=== PATIENT | male | born 1950 | race Caucasian/White ===

== ENCOUNTER → 2016-06-13 | Outpatient (CLI) | payer OTHER, MEDICARE ==
--- NOTE | 2016-06-13 11:46 | XR ---
EXAMINATION TYPE: XR shoulder limited LT DATE OF EXAM: 06/13/2016 11:30 AM COMPARISON: NONE HISTORY: Pain TECHNIQUE: Two views are submitted. FINDINGS: The osseous structures are intact. There is no acute fracture or dislocation. The AC joint is narro wed with hypertrophic change. There is severe glenohumeral arthropathy with remodeling of the glenoid . IMPRESSION: 1. Severe arthropathy of the glenohumeral joint with remodeling.
[2016-06-13 11:54] LABS: EKG EKG PERFORMED
[2016-06-13 13:24] LABS: Hepatitis C Virus IgG Ab Reactive (Negative)
== END | disposition home or self-care (01) ==
LOC: RADXRMAIN 11:04
PROVIDERS: ATTEND Family Medicine
DX: R07.9 Chest pain, unspecified (principal); M13.812 Other specified arthritis, left shoulder; F17.210 Nicotine dependence, cigarettes, uncomplicated; Z68.28 Body mass index [BMI] 28.0-28.9, adult; Z71.89 Other specified counseling; Z71.3 Dietary counseling and surveillance
CPT/HCPCS: 36415; 86803; 93005

== ENCOUNTER → 2016-06-17 | Outpatient (CLI) | payer OTHER, MEDICARE ==
--- NOTE | 2016-06-17 10:48 | CTL ---
EXAMINATION TYPE: CT Low Dose Lung DATE OF EXAM ORDERED: 06/17/2016 10:26 AM HISTORY: Tobacco use and asbestos exposure. Lung cancer screening CT DLP: 121.[address] CTDI: 304 mGy Automated exposure control for dose reduction was used. COMPARISON: None TECHNIQUE: Low dose computed tomography scan was performed through the chest at 1 mm thick sections a nd reconstructed images in the coronal plane at [address] DIAGNOSTIC QUALITY: Satisfactory FINDINGS: LUNG NODULES: 1. 3 mm peripheral right upper lobe nodule axial image 65 2. 3 mm right upper lobe nodule axial image 98. LUNGS: Subsegmental changes involving both lung bases. Groundglass changes are noted which likely in the bas is of chronic atelectasis. No significant interlobular septal thickening. Paraseptal emphysematous ch anges are noted. PLEURAL SPACE: No pleural effusion or thickening bilaterally. HEART: Heart is enlarged and there is coronary artery calcification. OTHER FINDINGS: Hypertrophic and degenerative change of the spine noted. IMPRESSION: There are two 3 mm less pulmonary nodules which have a benign appearance. FOLLOW UP CT CHEST RECOMMENDATION: Follow-up in one year recommended CT LUNG RAD: Category 2
== END ==
LOC: RADCTMAIN 09:23
PROVIDERS: ATTEND Family Medicine
DX: R91.8 Other nonspecific abnormal finding of lung field (principal); Z87.891 Personal history of nicotine dependence

== ENCOUNTER 2018-01-16 18:13 | Emergency (ER) | payer OTHER, MEDICARE ==
[2018-01-16 18:46] VITALS: BP 164/87; PULSE 92; RESP 18; TEMP 98
[2018-01-16] MEDS ORDERED: ACETAMINOPHEN TAB 500 MG TAB PO STA (19:44)
[2018-01-16] MEDS ORDERED: LIDOCAINE 1% INJ 10MG/ML (20 ML MDV) SQ STA (19:44)
[2018-01-16] MEDS ORDERED: DIPH,PERTUS(ACELL)TETVAC-LF 0.5 ML VIAL IM ONE (19:44)
--- NOTE | 2018-01-16 19:57 | ED ---
General Adult HPI - General Chief complaint: Wound/Laceration Stated complaint: Lip Lac from splitting wood Time Seen by Provider: 01/16/18 19:28 Source: patient, RN notes reviewed Mode of arrival: ambulatory Limitations: no limitations - History of Present Illness Initial comments: Patient's a 67-year-old male presented to the emergency room today with a chief complaint of a laceration to his lower lip. He does admit that he was using a log splitter when a log pushed out and hit him on the lower lip causes laceration. It did cause to tooth to be knocked out. Patient states he was not knocked unconscious. He denies any headache. He admits to pain locally to the lower lip. He states unsure of his tetanus status. He denies any other complaints. Patient denies any recent fever, chills, shortness of breath, chest pain, back pain, abdominal pain, nausea or vomiting, numbness or tingling headaches or visual changes, or any other complaints. - Related Data Previous Rx's Medication Instructions Recorded Clindamycin HCl 300 mg PO Q6H #40 cap 01/16/18 Allergies Allergy/AdvReac Type Severity Reaction Status Date / Time No Known Allergies Allergy Verified 01/16/18 18:41 Review of Systems ROS Statement: Those systems with pertinent positive or pertinent negative responses have been documented in the HPI. ROS Other: All systems not noted in ROS Statement are negative. 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 Eye: Pupils are equal, round and reactive to light. Extra-ocular movements are intact. No nystagmus. There is normal conjunctiva bilaterally. No signs of icterus. Ears, nose, mouth and throat: There are moist mucous membranes and no oral lesions. Patient does have missing tooth #7 and 26. Tooth #8 does wiggle on palpation but is firmly in place. Patient is able to fully open and close jaw. Neck: The neck is supple, there is no tenderness or JVD. Musculoskeletal: Normal ROM, no tenderness. Sensation intact. Strength 5/5. Pulses equal bilaterally 2+. Neurological: A&O x 3. CN II-XII intact, There are no obvious motor or sensory deficits. Coordination appears grossly intact. Speech is normal. Skin: Small have centimeter laceration running vertically to the inside of the lower lip. No active bleeding. There is a 1 cm laceration to the right side of the lower lip. Psychiatric: Cooperative, appropriate mood & affect, normal judgment. Limitations: no limitations Course Vital Signs 01/16/18 18:41 Temperature 98 F Pulse Rate 92 Respiratory 18 Rate Blood Pressure 164/87 O2 Sat by Pulse 97 Oximetry Procedures - Procedures Initial comment: Laceration site to the right side of the lower lip measuring approximately a centimeter in total length. There was mild venous oozing. Area was irrigated heavily. Was anesthetized locally with 1% lidocaine. A total of 4 sutures were placed of 5-0 nylon. Patient tolerated procedure well. Medical Decision Making - Medical Decision Making It was discussed with patient about imaging here in the emergency room and he has declined. He states that he does not feel it is necessary. I was updated here in emergency room. Will be started on antibiotics and advised to follow- up with oral surgeon. Disposition Clinical Impression: Laceration, Facial injury Disposition: HOME SELF-CARE Condition: Good Instructions: Laceration (ED) Additional Instructions: Please follow-up with your surgeon over the next 2 days. Please use antibiotic as prescribed. Please have sutures removed in 5 days. Please watch for any signs of infection return to emergency room for new concerns. Prescriptions: Clindamycin HCl 300 mg PO Q6H #40 cap Is patient prescribed a controlled substance at d/c from ED?: No Referrals: Phillip Bowen Jr, [Primary Care Provider] - 1-2 days Mahamed Sofia DDS [STAFF PHYSICIAN] - 1-2 days Time of Disposition: 20:23
[2018-01-16] MEDS ORDERED: ACET/COD 300 MG/30 MG STARTER PACK 6 TAB BTL PO STA (20:17)
== END 2018-01-16 20:42 | disposition home or self-care (01) ==
LOC: EC 18:13
DX: S01.511A Laceration without foreign body of lip, initial encounter (principal); F17.200 Nicotine dependence, unspecified, uncomplicated; Z23 Encounter for immunization; Z53.8 Procedure and treatment not carried out for other reasons; W22.8XXA Striking against or struck by other objects, initial encounter; Y93.89 Activity, other specified; Y92.009 Unspecified place in unspecified non-institutional (private) residence as the place of occurrence of the external cause
CPT/HCPCS: 90715; 99282; 12011; 90471; J2001

== ENCOUNTER → 2018-04-15 | Outpatient (CLI) | payer MEDICARE, OTHER | LOC: LABWHC1 11:07 | PROVIDERS: ATTEND Family Medicine | DX: R07.9 Chest pain, unspecified (principal) | CPT/HCPCS: 36415; 93005 ==

== ENCOUNTER → 2018-04-17 | Outpatient (CLI) | payer OTHER, MEDICARE ==
--- NOTE | 2018-04-17 12:09 | EST ---
EXERCISE STRESS AGE: 67 SEX: M HT: 6'2" WT: 225 PROTOCOL: Cardiolite Michael Stress Test STAGE: II DURATION OF EXERCISE: 7:22 HEART RATE REST: 71 BLOOD PRESSURE REST: 173/106 MAXIMUM HEART RATE ACHIEVED: 134 MAXIMUM BLOOD PRESSURE: 203/98 85% MPHR: 130 100% MPHR: 153 METS: 8.5 INDICATIONS: Chest pain, hypertension. CLINICAL INFORMATION: Baseline rhythm is sinus mechanism, rate 71, normal axis and intervals, normal electrocardiogram. Baseline blood pressure 173/106 mmHg. Patient exercised on Michael protocol for 7 minute 22 seconds reaching a peak rate 134 beats per minute which is equal to 87% maximum predicted heart rate. Peak blood pressure 203/98 mmHg. Test was terminated due to fatigue. There was no chest pain. Electrocardiograph monitoring revealed no evidence of diagnostic ischemic ST deviation. Cardiolite was injected at peak exercise. CONCLUSION: 1. Average exercise tolerance with normal echocardiograph response to exercise. 2. Nuclear images will be reported separately. MMODL / IJN: [id number] /
--- NOTE | 2018-04-17 12:52 | NM ---
EXAMINATION TYPE: NM stress cardiolite complete DATE OF EXAM: 04/17/2018 COMPARISON: NONE HISTORY: Chest pain, hypertension TECHNIQUE: After the intravenous administration of 10.24 mCi Tc 99m Sestamibi - Rest images obtained 45 minutes post injection. The patient exercised using a ISABELLE protocol and 1 minute prior to peak exercise was injected with 25.1 mCi Tc 99m Sestamibi - Stress images obtained 30 minutes post inject ion. FINDINGS: Targeted heart rate was achieved during performance of the study. Review of stress and rest SPECT davion ges demonstrates no distinct perfusion abnormality. Gated analysis shows normal wall motion with an estimated left ventricular ejection fraction of 52 %. IMPRESSION: No scintigraphic evidence for reversible ischemia
== END | disposition home or self-care (01) ==
LOC: RADNMMAIN 07:44
PROVIDERS: ATTEND Family Medicine
DX: R07.89 Other chest pain (principal); I10 Essential (primary) hypertension; F17.210 Nicotine dependence, cigarettes, uncomplicated
CPT/HCPCS: 93017; 78452; A9500

== ENCOUNTER → 2022-04-19 | Outpatient (CLI) | payer MEDICARE ==
--- NOTE | 2022-04-19 10:03 | CTL ---
EXAMINATION TYPE: CT Low Dose Lung DATE OF EXAM ORDERED: 04/19/2022 HISTORY: 71-year-old male Z87.891, personal history nicotine dependence.. Lung cancer screening. Curr ent smoker with 84 pack-year history. CT DLP: 96.[address] CTDI: 2.6 mGy Automated exposure control for dose reduction was used. SCREENING VISIT: 6 year follow-up COMPARISON: 06/17/2016 TECHNIQUE: Low dose computed tomography scan was performed through the chest with coronal and sagitta l reconstructions. CT DIAGNOSTIC QUALITY: Satisfactory FINDINGS: Heart upper limits of normal in size without pericardial effusion. Three-vessel coronary artery calci fications are present in remarkable for coronary artery disease. Ascending aorta aneurysmal at 5.0 cm versus 4.7 cm, previously. Mild to moderate atherosclerotic arch calcifications with a bovine configuration to the aortic arch. Upper descending thoracic aorta aneurysmal at 4.3 cm. Tortuous descending thoracic aorta. Distally an eurysmal at 3.5 cm. Large caliber to the main right and left pulmonary arteries up to 2.8 cm may reflect underlying pulmo nary arterial hypertension. No thoracic lymphadenopathy by CT size criteria. Mild diffuse bronchial wall thickening. Minimal emphysematous change. No consolidation or pleural eff usion. No suspicious pulmonary nodule or mass. Mild hazy dependent instrument inferior lingular atele ctasis in the lower lungs. A tiny 3 mm lateral right upper lobe pulmonary nodule, axial image 108 rem ains unchanged. Visualized upper abdomen shows no gross abnormality. Bones: Moderate anterior endplate spondylosis mid to lower thoracic spine. IMPRESSION: 1. LungRADS 2, benign. Stable tiny 3 mm right upper lobe pulmonary nodule. 2. COPD with mild emphysema. Suspect underlying pulmonary arterial hypertension. Recommend smoking ce ssation. 3. Diffusely aneurysmal thoracic aorta. Ascending aorta now a 5.0 cm versus 4.7 cm, previously. 4. COPD with three-vessel coronary artery calcifications. CT LUNG RAD AND CT CHEST RECOMMENDATION: Lung-Rad 2 Benign Appearance or Behavior: Continue annual sc reening with LDCT in 12 months. S Modifier (other clinically significant findings): None
== END | disposition home or self-care (01) ==
LOC: RADCTMAIN 07:16
PROVIDERS: ATTEND Family Medicine
DX: Z12.2 Encounter for screening for malignant neoplasm of respiratory organs (principal); J43.9 Emphysema, unspecified; I25.10 Atherosclerotic heart disease of native coronary artery without angina pectoris; F17.210 Nicotine dependence, cigarettes, uncomplicated; R91.1 Solitary pulmonary nodule
CPT/HCPCS: 71271

== ENCOUNTER → 2023-05-15 | Outpatient (CLI) | payer MEDICARE ==
[2023-05-15 11:41] LABS: African American GFR (CKD) 72 (>60 ml/min/1.73 sqM); Blood Urea Nitrogen 16 mg/dL (9-20); Non-African American GFR(CKD) 62 (>60 ml/min/1.73 sqM)
--- NOTE | 2023-05-15 14:40 | CT ---
Exam: CT Angiography of the Chest. Date: 05/15/2023. Comparison: 04/19/2022. History: Thoracic aortic aneurysm follow-up. Technique: CT examination of the chest was performed following the intravenous administration of 70 m L of Isovue-300. CT dose lowering techniques were used, to include: automated exposure control, adjus tment for patient size, and/or use of iterative reconstruction. FINDINGS: Mediastinum and Izabella: There is no axillary, mediastinal or hilar lymphadenopathy. Pleural and Pericardial spaces: There are no pleural or pericardial effusions. Upper Abdomen: The visualized upper abdomen is unremarkable. Cardiovascular: There is moderate to significant vascular calcification and plaque seen throughout th e thoracic aorta with aneurysmal dilation of the ascending thoracic aorta at the level of the pulmona ry artery up to 4.7 cm in diameter which is unchanged. Dilation of the distal descending thoracic aor ta measuring up to 3.8 cm in diameter is also unchanged. There is no evidence of aortic dissection. T here are severe diffuse coronary artery calcifications. Pulmonary Artery: No definitive filling defects are seen within the central pulmonary arteries, howev er these are not well opacified on this examination. Lung Parenchyma and Airways: There is mild upper lobe predominant centrilobular and paraseptal emphys sona. Bones: There is severe osteoarthritis in the glenohumeral joints bilaterally. IMPRESSION: 1. Unchanged thoracic aortic aneurysmal dilation of the above. 2. Significant atherosclerotic changes. 3. Mild emphysema. 4. 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
== END | disposition home or self-care (01) ==
LOC: RADCTMAIN 10:40
PROVIDERS: ATTEND Thoracic Surgery (Cardiothoracic Vascular Surgery)
DX: J43.2 Centrilobular emphysema (principal); I25.10 Atherosclerotic heart disease of native coronary artery without angina pectoris; I71.20 Thoracic aortic aneurysm, without rupture, unspecified; M19.012 Primary osteoarthritis, left shoulder; M19.011 Primary osteoarthritis, right shoulder
CPT/HCPCS: 82565; 84520; 71275; 36415; Q9967